=== PATIENT | female | born 1985 | race Caucasian/White ===

== ENCOUNTER 2018-02-18 13:45 | Emergency (ER) | payer BC ==
[2018-02-18] MEDS: KETOROLAC 60 MG INJ IM (15:37)
== END 2018-02-18 16:46 | disposition home or self-care (01) ==
LOC: FTE 13:45
DX: M79.671 Pain in right foot (principal); M77.31 Calcaneal spur, right foot
CPT/HCPCS: 73610; 73610-RT; 73630; 81025; 96372; 99284-25

== ENCOUNTER 2018-08-22 20:03 | Emergency (ER) | payer SELFPAY, BC | END 2018-08-22 21:05 | disposition left against medical advice (07) | LOC: E/R 20:03 | DX: Z53.21 Procedure and treatment not carried out due to patient leaving prior to being seen by health care provider (principal) ==